=== PATIENT | female | born 1985 | race Caucasian/White ===

== ENCOUNTER 2018-11-05 21:03 | Emergency (ER) | payer OTHER, MEDICAID ==
[2018-11-05] MEDS: ACETAMINOPHEN 325 MG TAB PO (23:34)
== END 2018-11-06 00:56 | disposition home or self-care (01) ==
LOC: FTE 11-06 00:56
DX: S93.402A Sprain of unspecified ligament of left ankle, initial encounter (principal); X50.1XXA Overexertion from prolonged static or awkward postures, initial encounter; Y92.9 Unspecified place or not applicable; Z79.84 Long term (current) use of oral hypoglycemic drugs
CPT/HCPCS: 73610; 81025; 99283-25